=== PATIENT | male | born 1965 | race Caucasian/White ===

== ENCOUNTER → 2018-04-07 | Day surgery (SDC) | payer OTHER ==
[~2018-04-07] MED LIST: CHONDROITIN; DEXILANT60 MG; DEXILANT60 MG PO; FENTANYL CITRATE/PF 100MCG/2 ML INJ ONE; FISH OIL 1,0001 EAC2; FISH OIL PO; GLUCAGON FOR INJ 1 MG VIAL ONE; HYOSCYAMINE SULFATE 0.5 MG/ML INJ ONE; LEVOTHYROXINE137 MCG PO; LEVOTHYROXINE175 MCG PO; MIDAZOLAM HCL 2 MG/2 ML VIAL ONE; PANTOPRAZOLE SO40 MG PO; PROPOFOL IV EMULSION 10 MG/ML 50 ML VIAL ONE; TYLENOL WITH C1 EACH PO
--- NOTE | 2018-04-07 11:59 | Operative Report ---
DATE OF PROCEDURE: April 07, 2018 REFERRING PHYSICIAN: Dr. Al Lima. PROCEDURES PERFORMED 1. Esophagogastroduodenoscopy with esophageal dilatation and biopsies. 2. Colonoscopy with polypectomy. INDICATIONS FOR EGD: Dysphagia. INDICATIONS FOR COLONOSCOPY: Surveillance colonoscopy, personal history of colon polyps. MEDICATION: Patient was done under MAC. Please see anesthesiologist's note. PROCEDURE: With patient in left lateral decubitus position, flexible fiberoptic Olympus gastroscope was introduced into the esophagus under direct visualization without any difficulty. There were some longitudinal furrows in the esophagus suspicious for eosinophilic esophagitis and biopsies were obtained. An approximately 2 cm tongue of velvety-red mucosa was noted to extend proximally from the GE junction and that was biopsied. Esophagus was then dilated to size 52-American Arias. The scope was then advanced with ease into the stomach, traversing a small hiatal hernia. Mucosa overlying the antrum and the body revealed some diffuse erythema and moderate edema and biopsies were obtained and sent to stain for H. pylori. Pylorus was of normal contour and shape, was intubated with ease, and the scope was advanced all the way to the second portion of the duodenum. The scope was then withdrawn slowly. Mucosa overlying the proximal second portion and the duodenal bulb appeared to be within normal limits. The scope was then withdrawn back into the stomach and retroflexed and mucosa overlying the fundus and the cardia appeared to be within normal limits. The scope was then straightened out and was subsequently withdrawn. Patient tolerated the procedure well. IMPRESSION 1. Esophagus dilated to size 52-American Arias. 2. Rule out eosinophilic esophagitis. 3. Sandhu's esophagus, biopsied. 4. Small hiatal hernia. 5. Gastritis, biopsied. Biopsies sent to stain for Helicobacter pylori. PLAN: Follow up histology. Initiate Dexilant 60 mg 1 p.o. q.a.m. a.c. Patient was then turned around and after adequate lubrication of the anal canal. a flexible fiberoptic Olympus colonoscope was inserted into the rectum with ease and advanced all the way to the cecum. Mucosa overlying the cecum appeared to be within normal limits. Overall, the prep was suboptimal with scattered retained stools in the colon. One polyp was snared from the proximal ascending colon. The rest of the ascending and the transverse grossly appeared to be within normal limits. One polyp was hot biopsied from the descending colon. Whatever was visualized of the rest of the descending, sigmoid, and rectum grossly appeared to be within normal limits. The scope was then retroflexed into the distal rectum and small internal hemorrhoids were noted, none of which was actively bleeding. The scope was then straightened out. It was subsequently withdrawn. Patient tolerated the procedure well. IMPRESSION 1. Suboptimal prep. 2. Ascending colon polyp, snared. 3. Descending colon polyp, hot biopsied. 4. Internal hemorrhoids, none actively bleeding. PLAN: Follow up histology. Initiate high-fiber, low-fat diet. Initiate high-fiber supplement. Patient might benefit considering his suboptimal prep from a followup colonoscopy in 2 years. Job#: [id number] EUNICE cc:AL LIMA MD
== END | disposition home or self-care (01) ==
LOC: OR 05:35
PROVIDERS: ATTEND Internal Medicine Gastroenterology
DX: K22.70 Barrett's esophagus without dysplasia (principal); D12.2 Benign neoplasm of ascending colon; D13.1 Benign neoplasm of stomach; K29.60 Other gastritis without bleeding; K44.9 Diaphragmatic hernia without obstruction or gangrene; K59.00 Constipation, unspecified; K64.8 Other hemorrhoids; Z01.810 Encounter for preprocedural cardiovascular examination; K21.9 Gastro-esophageal reflux disease without esophagitis; E03.9 Hypothyroidism, unspecified; Z68.36 Body mass index [BMI] 36.0-36.9, adult; Z83.79 Family history of other diseases of the digestive system
CPT/HCPCS: 43239; 43450; 45384; 45385; 93005; J1610; J1980; J2250

== ENCOUNTER → 2020-05-01 | Day surgery (SDC) | payer OTHER ==
[~2020-05-01] MED LIST changes: -DEXILANT60 MG; -FENTANYL CITRATE/PF 100MCG/2 ML INJ ONE; +HYOSCYAMINE 0.125 MG TAB ONE; -HYOSCYAMINE SULFATE 0.5 MG/ML INJ ONE; +LIDOCAINE HCL 2% LOCAL INJ 5 ML SDV VIAL INJ ONE; -MIDAZOLAM HCL 2 MG/2 ML VIAL ONE; +ONE A DAY PO; +PROPOFOL IV EMULSION 10 MG/ML 20 ML VIAL ONE; -PROPOFOL IV EMULSION 10 MG/ML 50 ML VIAL ONE
[2020-05-01 18:20] VITALS: BP 115/84
== END | disposition home or self-care (01) ==
LOC: OR 13:26
PROVIDERS: ATTEND Internal Medicine Gastroenterology
DX: K20.90 Esophagitis, unspecified without bleeding (principal); Z86.010 Personal history of colon polyps; K29.70 Gastritis, unspecified, without bleeding; K22.70 Barrett's esophagus without dysplasia; K44.9 Diaphragmatic hernia without obstruction or gangrene; K21.9 Gastro-esophageal reflux disease without esophagitis; K64.8 Other hemorrhoids; R00.1 Bradycardia, unspecified; E03.9 Hypothyroidism, unspecified; Z01.810 Encounter for preprocedural cardiovascular examination; Z01.812 Encounter for preprocedural laboratory examination; Z20.822 Contact with and (suspected) exposure to COVID-19; Z68.38 Body mass index [BMI] 38.0-38.9, adult; Z83.71 Family history of colonic polyps
CPT/HCPCS: 43239; 43450; 45378; 93005; J1610; J2001; J2704; U0002 ×2

== ENCOUNTER → 2021-03-01 | Outpatient (CLI) | payer OTHER ==
[~2021-03-01] MED LIST changes: -GLUCAGON FOR INJ 1 MG VIAL ONE; -HYOSCYAMINE 0.125 MG TAB ONE; -LIDOCAINE HCL 2% LOCAL INJ 5 ML SDV VIAL INJ ONE; -PROPOFOL IV EMULSION 10 MG/ML 20 ML VIAL ONE
== END ==
LOC: MRI 08:02
PROVIDERS: ATTEND Specialist
DX: S83.222A Peripheral tear of medial meniscus, current injury, left knee, initial encounter (principal)

== ENCOUNTER → 2023-04-15 | Day surgery (SDC) | payer OTHER ==
[~2023-04-15] MED LIST changes: -CHONDROITIN; +CHONDROITIN PO; -FISH OIL 1,0001 EAC2; +FISH OIL 1,0001 EAC2 PO; +LACTATED RINGER'S 1,000 ML ONE; +LIDOCAINE HCL 2% LOCAL INJ 5 ML SDV VIAL INJ ONE; +METOCLOPRAMIDE HCL 10 MG/2ML VIAL ONE; +MULTIVITAMIN1 EACH PO; +OMEPRAZOLE40 MG PO; +PROPOFOL IV EMULSION 10 MG/ML 20 ML VIAL ONE
[2023-04-15 11:00] VITALS: TEMP 97.3
[2023-04-15 11:30] VITALS: BP 133/70; PULSE 60; RESP 18; O2SAT 100
== END | disposition home or self-care (01) ==
LOC: OR 08:40
PROVIDERS: ATTEND Internal Medicine Gastroenterology
DX: K22.70 Barrett's esophagus without dysplasia (principal); K29.60 Other gastritis without bleeding; K44.9 Diaphragmatic hernia without obstruction or gangrene; Z86.010 Personal history of colon polyps; Z71.3 Dietary counseling and surveillance; G47.33 Obstructive sleep apnea (adult) (pediatric); R05.3 Chronic cough; I10 Essential (primary) hypertension; E03.9 Hypothyroidism, unspecified; Z79.899 Other long term (current) drug therapy; Z68.41 Body mass index [BMI] 40.0-44.9, adult
CPT/HCPCS: 43239; 93005; J2001; J2704; J2765; J7121

== ENCOUNTER → 2024-04-17 | Outpatient (REF) | payer OTHER ==
[~2024-04-17] MED LIST changes: -LACTATED RINGER'S 1,000 ML ONE; -LIDOCAINE HCL 2% LOCAL INJ 5 ML SDV VIAL INJ ONE; -METOCLOPRAMIDE HCL 10 MG/2ML VIAL ONE; -PROPOFOL IV EMULSION 10 MG/ML 20 ML VIAL ONE
== END ==
LOC: US 07:49
PROVIDERS: ATTEND Nurse Practitioner
DX: R10.10 Upper abdominal pain, unspecified (principal)
CPT/HCPCS: 76700